=== PATIENT | female | born 1990 | race Caucasian/White ===

== ENCOUNTER → 2019-04-01 | Outpatient (CLI) | payer OTHER ==
[2019-04-06 06:53] LABS: PLATELET COUNT 238 x10^3mcL (130-400); RED CELL DISTRIBUTION WIDTH 12.8 % (11.5-14.5)
[2019-04-06 07:44] LABS: ALBUMIN 4.2 g/dL (3.4-5.0); ALKALINE PHOSPHATASE 62 U/L (46-116); ALT/SGPT 17 U/L (14-59); AST/SGOT 11 U/L (15-37); BILIRUBIN TOTAL 1.15 mg/dL (0.20-1.00); CARBON DIOXIDE 30.1 mmol/L (21-32); CHLORIDE SERUM 104 mmol/L (98-107); CHOLESTEROL 146 mg/dL (<200); CREATININE SERUM 0.8 mg/dL (0.6-1.0); GFR1 > 60 mL/min; GLUCOSE SERUM 86 mg/dL (74-106); PHOSPHOROUS 4.1 mg/dL (2.5-4.9); POTASSIUM SERUM 3.9 mmol/L (3.5-5.1); SODIUM SERUM 141 mmol/L (136-145); TOTAL PROTEIN, SERUM 7.5 g/dL (6.4-8.2); URIC ACID 3.4 mg/dL (2.6-6.0)
[2019-04-06 07:50] LABS: CHOLESTEROL/HDL RATIO 1.8; HDL CHOLESTEROL 80 mg/dL (40-60); TRIGLYCERIDES 26 mg/dL (<150)
[2019-04-06 07:51] LABS: C REACTIVE PROTEIN < 0.2 mg/dL (<=0.9)
[2019-04-06 08:39] LABS: BAND NEUTROPHIL 0 % (0-10); BASOPHIL 0 % (0-2); MONOCYTE 7 % (0-7); SEGMENTED NEUTROPHILS 46 % (37-75)
[2019-04-06 08:45] LABS: ERYTHROCYTE SED RATE 10 mm/hr (0-20); rbc morphology (normal/abnorm) ABNORMAL (NORMAL)
[2019-04-07 09:10] LABS: RHEUMATOID ARTHRITIS FACTOR <10.0 IU/mL (0.0-13.9)
== END | disposition home or self-care (01) ==
LOC: RD 16:12
DX: M25.511 Pain in right shoulder (principal); M25.569 Pain in unspecified knee